=== PATIENT | female | born 1985 | race Caucasian/White ===

== ENCOUNTER 2020-07-15 13:48 | Day surgery (SDC) | payer BC ==
[2020-07-15] MEDS: Lactated Ringers 1,000 ML IV SCH ×3 (14:26→20:47)
[2020-07-15] MEDS ORDERED: Lactated Ringers 1,000 ML IV SCH (16:15)
--- NOTE | 2020-07-15 16:17 | PCM.CONS ---
H&P History of Present Illness - General Date of Service: 07/15/20 Admit Problem/Dx: Right lower quadrant pain. Source of Information: Patient - History of Present Illness Initial Comments - Free Text/Narative: Patient is a 34-year-old female who presented to see Dr. Treviño today with about a 24-hour history of lower abdominal pain, slightly worse on the right than on the left. No associated nausea, vomiting, fever, chills, diarrhea, or other change in bowel habits. Initial workup included an ultrasound that did not reveal any acute gynecologic pathology. CT scan of the abdomen does show an early appendicitis with a 1.3 cm appendix with some periappendiceal fat stranding, but no fluid collection. Symptom Onset Date: 07/14/20 Duration of Symptoms: Reports: Getting Worse Location: Reports: Abdomen Quality: Reports: Pressure Severity: Moderate Improves with: Reports: Rest Worsens with: Reports: Movement Right Lower Abdomen Pain Score (Numeric/FACES): 6 - Related Data Allergies/Adverse Reactions: Allergies Allergy/AdvReac Type Severity Reaction Status Date / Time amoxicillin Allergy Cannot Verified 04/23/16 11:27 Remember cefaclor [From Ceclor] Allergy Cannot Verified 04/23/16 11:27 Remember Home Medications: Home Meds Albuterol [Proventil HFA] 6.7 gm INH BID 04/23/16 [History] Azithromycin [Zithromax] 250 mg PO DAILY #6 tablet 04/23/16 [Rx] Insulin Aspart [NovoLOG] 04/23/16 [History] Prednisone [IJD: predniSONE] 20 mg PO BID #8 tab 04/23/16 [Rx] Past Medical History HEENT History: Reports: None Cardiovascular History: Reports: None Respiratory History: Reports: None Gastrointestinal History: Reports: None Genitourinary History: Reports: None STUDENT RECORDS SPECIALIST History: Reports: None, Polycystic Ovaries Musculoskeletal History: Reports: None Neurological History: Reports: Seizure, Other (See Below) Other Neuro History: 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 Endocrine/Metabolic History: Reports: Diabetes, Type I Type of Insulin Used in Pump: Novolog When was Your Last Insulin Site/Set Changed: 07/13/20 Who Manages Your Pump: Patient (Self) Oncologic (Cancer) History: Reports: Basal Cell Carcinoma, Other (See Below) Other Oncologic History: Basal cell carcinoma removed April 2020 from left forehead - Infectious Disease History Infectious Disease History: Reports: Chicken Pox Social & Family History - Family History Family Medical History: No Pertinent Family History - Tobacco Use Tobacco Use Status *Q: Never Tobacco User - Caffeine Use Caffeine Use: Reports: Coffee, Soda - Recreational Drug Use Recreational Drug Use: No H&P Review of Systems - Review of Systems: Review Of Systems: See Below General: Reports: Decreased Appetite. Denies: Fever, Chills, Fatigue HEENT: Reports: No Symptoms Pulmonary: Denies: Shortness of Breath, Wheezing Cardiovascular: Denies: Chest Pain Gastrointestinal: Reports: Anorexia, Decreased Appetite, Flatus. Denies: Abdominal Pain, Constipation, Diarrhea, Hematochezia, Melena, Nausea Genitourinary: Denies: Dysuria, Frequency, Burning, Pain, Urgency Musculoskeletal: Reports: No Symptoms Skin: Reports: No Symptoms Psychiatric: Reports: No Symptoms Neurological: Reports: No Symptoms Hematologic/Lymphatic: Reports: No Symptoms Immunologic: Reports: No Symptoms Exam - Exam Exam: See Below - Vital Signs Vital Signs: Last Vital Signs Temp 96.6 F L 07/15/20 13:55 Pulse 73 07/15/20 15:36 Resp 16 07/15/20 15:36 BP 145/85 H 07/15/20 15:36 Pulse Ox 99 07/15/20 15:36 Weight: 249 lb - Exam Quality Assessment: DVT Prophylaxis. No: Supplemental Oxygen, Central Line/PICC, Urinary Catheter General: Alert, Oriented, Cooperative, Moderate Distress HEENT: Conjunctiva Clear, Nares Patent, Normal Nasal Septum, PERRLA Neck: Supple, Trachea Midline Lungs: Clear to Auscultation, Normal Respiratory Effort Cardiovascular: Regular Rate, Regular Rhythm, Normal S1, Normal S2 GI/Abdominal Exam: Normal Bowel Sounds, Soft, Non-Tender, No Distention, Rebound, Tender. No: Guarding, Rigid, Hernia, Mass (Female) Exam: Deferred Rectal (Female) Exam: Deferred Extremities: Normal Inspection, Normal Range of Motion Peripheral Pulses: 4+: Posterior Tibial (L), Posterior Tibial (R), Dorsalis Pedis (L), Dorsalis Pedis (R) Skin: Warm, Dry, Intact Psychiatric: Alert, Normal Affect, Normal Mood - Patient Data Lab Results Last 24 hrs: Laboratory Results - last 24 hr 07/15/20 07/15/20 Range/Units 13:57 14:31 POC Glucose 94 (60-110) mg/dL SARS-CoV-2 RNA (ZOYA) NEGATIVE (NEGATIVE) Sepsis Event Note - Evaluation Sepsis Screening Result: No Definite Risk - Focused Exam Vital Signs: Vital Signs Temp Pulse Resp BP Pulse Ox 07/15/20 15:36 73 16 145/85 H 99 07/15/20 13:55 96.6 F L 79 16 154/100 H 99 Consult PN Assessment/Plan Procedures: Procedures ALANINE AMINO (ALT) (SGPT) (02/16/17) EMERGENCY DEPT VISIT (04/23/16) GLYCOSYLATED HEMOGLOBIN TEST (04/21/20) LIPID PANEL (04/21/20) METABOLIC PANEL TOTAL CA (04/21/20) ROUTINE VENIPUNCTURE (04/21/20) UR ALBUMIN SEMIQUANTITATIVE (04/21/20) (1) Appendicitis SNOMED Code(s): 84353098 Code(s): K37 - UNSPECIFIED APPENDICITIS Current Visit: Yes Qualifiers: Appendicitis type: acute appendicitis Acute appendicitis type: unspecified acute appendicitis type Qualified Code(s): K35.80 - Unspecified acute appendicitis Problem List Initiated/Reviewed/Updated: Yes My Orders Last 24 Hours: My Active Orders 07/15/20 13:51 Blood Glucose Check, Bedside [RC] ONETIME 07/15/20 14:00 Lactated Ringers [Ringers, Lactated] 1,000 ml IV ASDIRECTED 07/15/20 Dinner Nothing Per Oral Diet [DIET] 07/15/20 16:08 Resuscitation Status Routine 07/15/20 16:09 Antiembolic Devices [RC] PER UNIT ROUTINE Insert Urinary Catheter [OM.PC] Timed Oxygen Therapy [RC] ASDIRECTED RT Incentive Spirometry [RC] Q1HWA Skin Preparation [RC] .PREOP Urinary Catheter Assessment [RC] ASDIRECTED Urinary Catheter Assessment [RC] ASDIRECTED Urinary Catheter Assessment [RC] ASDIRECTED Vital Signs [RC] PER UNIT ROUTINE Antiembolic Hose [OM.PC] Routine 07/15/20 16:15 Ciprofloxacin in D5W [Cipro in D5W 400 MG/200 ML] 400 mg Premix Bag 1 bag IV Q12H Lactated Ringers @ 125 MLS/HR(1000ml) Lactated Ringers [Ringers, Lactated] 1,000 ml IV ASDIRECTED Plan: Laparoscopic appendectomy, possible open appendectomy. Both operative procedures, along with the risks, including, but not limited to, bleeding, infection, pneumonia, deep venous thrombosis, pulmonary emboli, myocardial infarction, and adjacent organ injury have been reviewed with the patient who voices understanding, offers no questions and agrees to proceed.
[2020-07-15] MEDS ORDERED: Midazolam 1 MG/ML 2 ML SDV ONE (16:22)
[2020-07-15] MEDS ORDERED: fentaNYL 250 MCG/5 ML SDV ONE (16:22)
[2020-07-15] MEDS ORDERED: Propofol 200 MG/20 ML SDV ONE (16:22)
[2020-07-15] MEDS ORDERED: Rocuronium Bromide 50 MG/5 ML Syringe ONE (16:25)
[2020-07-15] MEDS ORDERED: Glycopyrrolate 0.2 MG/ML SDV ONE (16:25)
[2020-07-15] MEDS ORDERED: Lidocaine 2% 5 ML SDV ONE (16:25)
[2020-07-15] MEDS ORDERED: Ketorolac 30 MG/ML SDV ONE (16:25)
[2020-07-15] MEDS ORDERED: Ondansetron 4 MG/2 ML SDV ONE (16:25)
[2020-07-15] MEDS ORDERED: Bupivacaine 0.5% 10 ML SDV ONE (16:29)
[2020-07-15] MEDS ORDERED: ceFAZolin 1 GM Vial ONE (16:30)
[2020-07-15] MEDS: Ciprofloxacin in D5W 400 MG in Premix Bag 1 BAG IV SCH ×2 (16:37)
[2020-07-15] MEDS ORDERED: Acetaminophen 1,000 MG in Premix Bag 1 BAG IV PRN (17:10)
[2020-07-15] MEDS ORDERED: fentaNYL 100 MCG/2 ML SDV IVPUSH PRN (17:10)
--- NOTE | 2020-07-15 17:12 | PCM.PREANE ---
Preanesthetic Assessment - Anesthesia/Transfusion/Family Hx Anesthesia History: Prior Anesthesia Without Reaction Family History of Anesthesia Reaction: No - Review of Systems Gastrointestinal: Abdominal Pain - Physical Assessment NPO Status Date: 07/15/20 NPO Status Time: 08:00 Vital Signs: Last Vital Signs Temp 35.9 C L 07/15/20 13:55 Pulse 75 07/15/20 16:36 Resp 16 07/15/20 16:36 BP 133/76 07/15/20 16:36 Pulse Ox 97 07/15/20 16:36 Height: 1.68 m Weight: 112.945 kg ASA Class: 2E - Lab Values: Laboratory Last Values POC Glucose 94 mg/dL (60-110) 07/15/20 13:57 SARS-CoV-2 RNA (ZOYA) NEGATIVE (NEGATIVE) 07/15/20 14:31 - Allergies Allergies/Adverse Reactions: Allergies Allergy/AdvReac Type Severity Reaction Status Date / Time amoxicillin Allergy Cannot Verified 04/23/16 11:27 Remember cefaclor [From Ceclor] Allergy Cannot Verified 04/23/16 11:27 Remember - Acknowledgements Anesthesia Type Planned: General Anesthesia Pt an Appropriate Candidate for the Planned Anesthesia: Yes Alternatives and Risks of Anesthesia Discussed w Pt/Guardian: Yes Pt/Guardian Understands and Agrees with Anesthesia Plan: Yes PreAnesthesia Questionnaire HEENT History: Reports: None Cardiovascular History: Reports: None Respiratory History: Reports: None Gastrointestinal History: Reports: None Genitourinary History: Reports: None 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: Reports: None, Polycystic Ovaries Musculoskeletal History: Reports: None Neurological History: Reports: Seizure, Other (See Below) Other Neuro History: 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 Endocrine/Metabolic History: Reports: Diabetes, Type I Oncologic (Cancer) History: Reports: Basal Cell Carcinoma, Other (See Below) Other Oncologic History: Basal cell carcinoma removed April 2020 from left forehead - Infectious Disease History Infectious Disease History: Reports: Chicken Pox - SUBSTANCE USE Tobacco Use Status *Q: Never Tobacco User Recreational Drug Use History: No - HOME MEDS Home Medications: Home Meds Albuterol [Proventil HFA] 6.7 gm INH BID 04/23/16 [History] Azithromycin [Zithromax] 250 mg PO DAILY #6 tablet 04/23/16 [Rx] Insulin Aspart [NovoLOG] 04/23/16 [History] Prednisone [IJD: predniSONE] 20 mg PO BID #8 tab 04/23/16 [Rx] - CURRENT (IN HOUSE) MEDS Current Meds: Current Medications Lactated Ringer's (Ringers, Lactated) 1,000 mls @ 125 mls/hr IV ASDIRECTED [facility] Last Admin: 07/15/20 14:26 Dose: 125 mls/hr Documented by: Lactated Ringer's (Ringers, Lactated) 1,000 mls @ 125 mls/hr IV ASDIRECTED [facility] Ciprofloxacin/Dextrose 400 mg/ (Premix) 200 mls @ 200 mls/hr IV Q12H [facility] Last Admin: 07/15/20 16:37 Dose: 200 mls/hr Documented by: Discontinued Medications Bupivacaine HCl (Sensorcaine-Mpf 0.5%) Confirm Administered Dose 10 ml .ROUTE .STK-MED ONE Stop: 07/15/20 16:30 Cefazolin Sodium (Ancef) Confirm Administered Dose 1 gm .ROUTE .STK-MED ONE Stop: 07/15/20 16:31 Fentanyl (Sublimaze) Confirm Administered Dose 250 mcg .ROUTE .STK-MED ONE Stop: 07/15/20 16:23 Glycopyrrolate (Robinul) Confirm Administered Dose 0.8 mg .ROUTE .STK-MED ONE Stop: 07/15/20 16:26 Ketorolac Tromethamine (Toradol) Confirm Administered Dose 30 mg .ROUTE .STK-MED ONE Stop: 07/15/20 16:26 Lidocaine (Xylocaine-Mpf 2%) Confirm Administered Dose 5 ml .ROUTE .STK-MED ONE Stop: 07/15/20 16:26 Midazolam HCl (Versed 1 Mg/Ml) Confirm Administered Dose 2 mg .ROUTE .STK-MED ONE Stop: 07/15/20 16:23 Ondansetron HCl (Zofran) Confirm Administered Dose 4 mg .ROUTE .STK-MED ONE Stop: 07/15/20 16:26 Propofol (Diprivan 20 Ml) Confirm Administered Dose 200 mg .ROUTE .STK-MED ONE Stop: 07/15/20 16:23 Rocuronium [place] (Rocuronium [place]) Confirm Administered Dose 50 mg .ROUTE .STK-MED ONE Stop: 07/15/20 16:26
[2020-07-15] MEDS ORDERED: Ondansetron 4 MG/2 ML SDV IVPUSH PRN (18:36)
[2020-07-15] MEDS ORDERED: Morphine 2 MG/ML SYRINGE IVPUSH PRN (18:43)
--- NOTE | 2020-07-15 18:43 | PCM.OPNOTE ---
- General Post-Op/Procedure Note Date of Surgery/Procedure: 07/15/20 Operative Procedure(s): Laparoscopic appendectomy Pre Op Diagnosis: Acute abdomen Post-Op Diagnosis: Acute nonruptured appendicitis with localized peritonitis Anesthesia Technique: General ET Tube (ASA IIE) Primary Surgeon: Kimo Long Loose Hand Packer: Batsheva Shah Fluid Replacement, Intraop: 900 Output, Urine Amount: 700 EBL in mLs: 10 Condition: Stable Free Text/Narrative:: DICTATION 080544 CPT CODE 53544
--- NOTE | 2020-07-15 19:04 | PCM48HPAN ---
Post Anesthesia Note - EVALUATION WITHIN 48HRS OF ANESTHETIC Vital Signs in Normal Range: Yes Patient Participated in Evaluation: Yes Respiratory Function Stable: Yes Airway Patent: Yes Cardiovascular Function Stable: Yes Hydration Status Stable: Yes Pain Control Satisfactory: Yes Nausea and Vomiting Control Satisfactory: Yes Mental Status Recovered: Yes Vital Signs: Last Vital Signs Temp 97.5 F 07/15/20 18:17 Pulse 89 07/15/20 18:58 Resp 14 07/15/20 18:58 BP 130/74 07/15/20 18:58 Pulse Ox 97 07/15/20 18:58 - COMMENTS/OBSERVATIONS Free Text/Narrative:: awake alert, without pain or nausea. SPO2 is 95-96 % on 2 liters nasal canulae. Will advise staying on O2 all night with continuous spo2 monitoring.
--- NOTE | 2020-07-15 19:31 | OR ---
SURGEON: Kimo Long M.D. DATE OF PROCEDURE: 07/15/2020 OPERATION PERFORMED: Laparoscopic appendectomy. PRIMARY SURGEON: Kimo Long MD DRY CELL AND BATTERY ASSEMBLER: Health Support Specialist: ARIS Wisdom student. ANESTHESIA: General endotracheal. ASA CLASSIFICATION: IIE. PREOPERATIVE DIAGNOSIS: Acute abdomen. POSTOPERATIVE DIAGNOSIS: Acute appendicitis with localized peritonitis, no rupture. ESTIMATED BLOOD LOSS: 10 mL. INTRAOPERATIVE FLUID REPLACEMENT: 900 mL of crystalloid. INTRAOPERATIVE URINARY OUTPUT: 700 mL. DESCRIPTION OF PROCEDURE: The patient was taken to the operating room, placed on the operating table in the supine position. Time-out was called for appropriate identification of the patient and procedure. Sequential compression boots were placed. Following satisfactory attainment of general endotracheal anesthesia, a Thornton catheter was placed in the patient's urinary bladder. The abdomen was prepped with DuraPrep solution and sterile drapes were applied. The skin just above the umbilicus was infiltrated with 0.5% Marcaine solution. Skin incision was made and deepened through the subcutaneous tissue obtaining hemostasis with the use of electrocautery. The Veress needle was introduced into the peritoneal cavity. Saline drop test was positive. Carbon dioxide pneumoperitoneum was established with the release set at 13 cm of water. Once we had a satisfactory pneumoperitoneum, the Veress needle was removed, and 5 mm camera and port were placed through the supraumbilical incision. The patient was now positioned with her head down and rolled to the left. Under camera vision, 12 mm suprapubic and 5 mm left lower quadrant ports were placed. Each incision had preemptively been infiltrated with 0.5% Marcaine solution. With all trocars in place, our attention was turned to the right lower quadrant. The appendix was stuck laterally, but I was able to free this up and take the mesoappendix down with the Harmonic scalpel. There was no significant bleeding noted. Once the mesoappendix had been completely mobilized, the appendix was transected using the Endo-TONY 45 with a blue load. The appendix was promptly placed into the Endopouch and maintained in situ. Our attention was again turned to the right lower quadrant, which was irrigated with approximately 700 mL of saline. Majority of that fluid was able to be aspirated, removing at least 80% to 85% of it. The patient was returned to a neutral position and again the right lower quadrant inspected. No bleeding was noted. With that accomplished, under camera vision, the 12 mm suprapubic port and Endo Catch containing gallbladder were removed. The left lower quadrant port was removed under camera vision and finally the supraumbilical camera and port were removed. The wounds were inspected for hemostasis, no bleeding was noted. All incisions were closed in two layers approximating the subcutaneous tissue with 3-0 Vicryl and the skin with subcuticular 4-0 Monocryl. All incisions were Steri-Stripped and dressed with sterile Tegaderm pads. Sponge, needle, and instrument counts were all correct. Thornton catheter was removed prior to emergence from anesthesia. Following emergence from anesthesia and extubation, the patient was taken to recovery room in stable condition. MARY / BROOKLYN /[id number]
[2020-07-15] MEDS: Acetaminophen/HYDROcodone 325-5 MG Tab PO PRN ×2 (20:41→21:18)
[2020-07-16] MEDS: Acetaminophen/HYDROcodone 325-5 MG Tab PO PRN ×2 (01:41→08:34)
[2020-07-16] MEDS: Ciprofloxacin in D5W 400 MG in Premix Bag 1 BAG IV SCH ×2 (04:09)
[2020-07-16] MEDS: Lactated Ringers 1,000 ML IV SCH (05:15)
[2020-07-16 05:27] VITALS: PULSE 92
--- NOTE | 2020-07-16 07:02 | PCM48HPAN ---
Post Anesthesia Note - EVALUATION WITHIN 48HRS OF ANESTHETIC Vital Signs in Normal Range: Yes Patient Participated in Evaluation: Yes Respiratory Function Stable: Yes Airway Patent: Yes Cardiovascular Function Stable: Yes Hydration Status Stable: Yes Pain Control Satisfactory: Yes Nausea and Vomiting Control Satisfactory: Yes Mental Status Recovered: Yes Vital Signs: Last Vital Signs Temp 36.6 C 07/16/20 05:20 Pulse 92 07/16/20 05:20 Resp 17 07/16/20 05:20 BP 120/81 07/16/20 05:20 Pulse Ox 94 L 07/16/20 05:20
[2020-07-16 11:28] VITALS: BP 122/75
== END 2020-07-16 11:02 | disposition home or self-care (01) ==
LOC: MW.ED 13:48 → MW.MS 16:17 → MW.SDS 16:17 → MW.ICU 19:15 → MW.SDS 07-16 11:02
PROVIDERS: ATTEND Surgery
DX: K35.30 Acute appendicitis with localized peritonitis, without perforation or gangrene (principal); Z01.812 Encounter for preprocedural laboratory examination; Z20.828 Contact with and (suspected) exposure to other viral communicable diseases; E10.9 Type 1 diabetes mellitus without complications; Z88.0 Allergy status to penicillin; Z88.8 Allergy status to other drugs, medicaments and biological substances; Z79.899 Other long term (current) drug therapy
CPT/HCPCS: 44970; 82962; 87635; A9270; J0744; J1885; J2001; J2250; J2405; J2704; J3010; J3490; J7120; 00840; 88304; J0690; U0002

== ENCOUNTER 2021-02-27 14:15 | Emergency (ER) | payer BC ==
[2021-02-27 14:26] VITALS: BP 167/84; PULSE 71
[2021-02-27] MEDS ORDERED: Metoclopramide 10 MG/2 ML SDV IVPUSH ONE (14:45)
--- NOTE | 2021-02-27 14:52 | EDM.PDOC ---
ED HPI GENERAL MEDICAL PROBLEM - General Chief Complaint: General Stated Complaint: PUKING/HEADACHE/DIZZY Time Seen by Provider: 02/27/21 14:22 Source of Information: Reports: Patient History Limitations: Reports: No Limitations - History of Present Illness INITIAL COMMENTS - FREE TEXT/NARRATIVE: Is a 35-year-old female presents today for headache that started 2 hours ago. Patient states she regularly has migraines but this is different. The most, migraine makes her vomit but that she vomits she starts headache and she still feels nauseous. She denies any vision changes or extremity numbness or weakness. Patient denies any fever chills abdominal pain but states she is feels tired and weak. Headache Pain Score (Numeric/FACES): 5 - Related Data Allergies Allergy/AdvReac Type Severity Reaction Status Date / Time amoxicillin Allergy Mild Rash Verified 02/27/21 14:23 cefaclor [From Ceclor] Allergy Mild Rash Verified 02/27/21 14:23 Home Meds: Home Meds Insulin Aspart [NovoLOG] 1 dose SUBCUT ASDIRECTED 04/23/16 [History] Past Medical History - Past Health History Medical/Surgical History: Denies Medical/Surgical History HEENT History: Reports: None Cardiovascular History: Reports: None Respiratory History: Reports: None Gastrointestinal History: Reports: None Genitourinary History: Reports: None 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: None, Polycystic Ovaries Musculoskeletal History: Reports: None Neurological History: Reports: Seizure, Other (See Below) Other Neuro History: 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 Endocrine/Metabolic History: Reports: Diabetes, Type I Oncologic (Cancer) History: Reports: Basal Cell Carcinoma, Other (See Below) Other Oncologic History: Basal cell carcinoma removed April 2020 from left forehead - Infectious Disease History Infectious Disease History: Reports: Chicken Pox Social & Family History - Family History Family Medical History: No Pertinent Family History - Tobacco Use Tobacco Use Status *Q: Never Tobacco User - Caffeine Use Caffeine Use: Reports: None - Recreational Drug Use Recreational Drug Use: No ED ROS GENERAL - Review of Systems Review Of Systems: See Below Constitutional: Reports: No Symptoms HEENT: Reports: No Symptoms Respiratory: Reports: No Symptoms Cardiovascular: Reports: No Symptoms Endocrine: Reports: No Symptoms GI/Abdominal: Reports: Nausea, Vomiting : Reports: No Symptoms Musculoskeletal: Reports: No Symptoms Skin: Reports: No Symptoms Neurological: Reports: No Symptoms Psychiatric: Reports: No Symptoms Hematologic/Lymphatic: Reports: No Symptoms Immunologic: Reports: No Symptoms ED EXAM, GENERAL - Physical Exam Exam: See Below Exam Limited By: No Limitations General Appearance: Alert, WD/WN, No Apparent Distress Eye Exam: Bilateral Eye: EOMI, PERRL Respiratory/Chest: No Respiratory Distress, Lungs Clear, Normal Breath Sounds Cardiovascular: Normal Peripheral Pulses, Regular Rate, Rhythm GI/Abdominal: Normal Bowel Sounds, Soft, Non-Tender Extremities: Normal Inspection, Normal Range of Motion Neurological: Alert, Oriented, CN II-XII Intact, Normal Cognition, Normal Gait Course - Vital Signs Last Recorded V/S: Last Vital Signs Temp 96.5 F L 02/27/21 14:25 Pulse 71 02/27/21 14:25 Resp 16 02/27/21 14:25 BP 167/84 H 02/27/21 14:25 Pulse Ox 99 02/27/21 14:25 - Orders/Labs/Meds Orders: Active Orders 24 hr Category Date Time Status CBC WITH AUTO DIFF [HEME] Stat Lab 02/27/21 14:46 Ordered COMPREHENSIVE METABOLIC PN,CMP [CHEM] Stat Lab 02/27/21 15:22 Ordered HCG QUALITATIVE,URINE [URCHEM] Stat Lab 02/27/21 14:46 Ordered UA W/MATEO RFLX IF INDICATED [URIN] Stat Lab 02/27/21 14:46 Ordered Meds: Medications Discontinued Medications Generic Name Dose Route Start Last Admin Trade Name Freq PRN Reason Stop Dose Admin Ketorolac Tromethamine 30 mg 02/27/21 15:40 02/27/21 16:00 Ketorolac 30 Mg/Ml Sdv IVPUSH 02/27/21 15:41 30 mg ONETIME ONE Administration Metoclopramide HCl 10 mg 02/27/21 14:45 02/27/21 15:42 Metoclopramide 10 Mg/2 Ml Sdv IVPUSH 02/27/21 14:46 Not Given ONETIME ONE Ondansetron HCl 4 mg 02/27/21 15:41 02/27/21 15:59 Ondansetron 4 Mg Tab.Dis PO 02/27/21 15:42 4 mg ONETIME ONE Administration Departure - Departure Time of Disposition: 16:04 Disposition: Home, Self-Care 01 Condition: Good Clinical Impression: Headache - Discharge Information *PRESCRIPTION DRUG MONITORING PROGRAM REVIEWED*: Not Applicable *COPY OF PRESCRIPTION DRUG MONITORING REPORT IN PATIENT SY: Not Applicable Instructions: General Headache Without Cause Referrals: Olayinka Lew MD [Primary Care Provider] - Forms: ED Department Discharge Additional Instructions: The following information is given to patients seen in the emergency department who are being discharged to home. This information is to outline your options for follow-up care. We provide all patients seen in our emergency department with a follow-up referral. The need for follow-up, as well as the timing and circumstances, are variable depending upon the specifics of your emergency department visit. If you don't have a primary care physician on staff, we will provide you with a referral. We always advise you to contact your personal physician following an emergency department visit to inform them of the circumstance of the visit and for follow-up with them and/or the need for any referrals to a consulting specialist. The emergency department will also refer you to a specialist when appropriate. This referral assures that you have the opportunity for follow-up care with a specialist. All of these measure are taken in an effort to provide you with optimal care, which includes your follow-up. Under all circumstances we always encourage you to contact your private physician who remains a resource for coordinating your care. When calling for follow-up care, please make the office aware that this follow-up is from your recent emergency room visit. If for any reason you are refused follow-up, please contact the [facility] Emergency Department at and asked to speak to the emergency department charge nurse. Please follow up with your primary care physician. If you do not have a primary care physician, see below: [facility] [address] [place] [id number] [facility] [address] [place] [id number] You are seen today for headache and the low temperature your temperature is normal here we had a hard time getting an IV line you to obtain and give you IV medication here. If you have any other concerning signs or symptoms please return to ED. Sepsis Event Note (ED) - Evaluation Sepsis Screening Result: No Definite Risk - Focused Exam Vital Signs: Vital Signs Temp Pulse Resp BP Pulse Ox 02/27/21 14:25 96.5 F L 71 16 167/84 H 99 - My Orders Last 24 Hours: My Active Orders 02/27/21 14:46 CBC WITH AUTO DIFF [HEME] Stat HCG QUALITATIVE,URINE [URCHEM] Stat UA W/MATEO RFLX IF INDICATED [URIN] Stat 02/27/21 15:22 COMPREHENSIVE METABOLIC PN,CMP [CHEM] Stat - Assessment/Plan Last 24 Hours: My Active Orders 02/27/21 14:46 CBC WITH AUTO DIFF [HEME] Stat HCG QUALITATIVE,URINE [URCHEM] Stat UA W/MATEO RFLX IF INDICATED [URIN] Stat 02/27/21 15:22 COMPREHENSIVE METABOLIC PN,CMP [CHEM] Stat Plan: Patient is a 35-year-old female presents today for headache does not resolve. Patient has no neurological deficit on exam Will give Reglan obtain labs and reassess.
[2021-02-27] MEDS ORDERED: Ondansetron 4 MG Tab.DIS PO ONE (15:41)
[2021-02-27] MEDS: Ketorolac 30 MG/ML SDV IVPUSH ONE (16:00)
[2021-03-01] MEDS ORDERED: Ketorolac 30 MG/ML SDV IM ONE (03:06)
[2021-03-02] MEDS: Ketorolac 30 MG/ML SDV IVPUSH ONE (22:30)
== END 2021-02-27 16:20 | disposition home or self-care (01) ==
LOC: MW.ED 14:15
DX: R51.9 Headache, unspecified (principal); E10.9 Type 1 diabetes mellitus without complications; Z88.0 Allergy status to penicillin; Z88.1 Allergy status to other antibiotic agents
CPT/HCPCS: 36415; 99283; A9270; J1885